=== PATIENT | female | born 2000 | race Caucasian/White ===

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

== ENCOUNTER → 2022-01-28 10:27 | Outpatient (CLI) | payer OTHER, SELFPAY | PROVIDERS: PCP Obstetrics & Gynecology; Visit Provider Obstetrics & Gynecology | DX: Z34.90 Encounter for supervision of normal pregnancy, unspecified, unspecified trimester (principal) ==

== ENCOUNTER → 2022-01-30 07:05 | Outpatient (CLI) | payer OTHER, SELFPAY ==
[2022-01-30 07:30] LABS: Basophils # 0.1 K/mm3 (0-0.2); Basophils % 1.2 % (0.1-2.0); Eosinophils # 0.1 K/mm3 (0.0-0.4); Eosinophils % 0.9 % (0.1-12.0); Hematocrit 40.5 % (37.0-47.0); Hemoglobin 13.1 g/dL (12.2-16.2); Lymphocytes # 1.4 K/mm3 (0.7-4.5); Lymphocytes % 13.3 % (10-50); Mean Corpuscular HGB Conc 32.3 g/dL (31.8-35.4); Mean Corpuscular Hemoglobin 32.1 pg (27.0-31.2); Mean Corpuscular Volume 99.5 fl (81-99); Mean Platelet Volume 8.2 fl (7.4-10.4); Monocytes # 0.5 K/mm3 (0.1-1.0); Monocytes % 4.3 % (1.7-9.3); Neutrophils # 8.4 K/mm3 (1.8-7.8); Neutrophils % 80.2 % (37.0-80.0); Platelet Count 193 K/mm3 (142-424); Red Blood Count 4.07 M/mm3 (4.20-5.40); Red Cell Distribution Width 13.9 % (11.5-17.5); White Blood Count 10.5 K/mm3 (4.5-13.0)
[2022-01-30 07:35] LABS: Glucose,Fasting 87 mg/dl (74-100)
[2022-01-30 09:00] LABS: Glucose 1 Hour 98 mg/dL (74-100)
== END ==
PROVIDERS: PCP Nurse Practitioner Family; Visit Provider Obstetrics & Gynecology
DX: Z34.90 Encounter for supervision of normal pregnancy, unspecified, unspecified trimester (principal)
CPT/HCPCS: 36415; 82951; 85025

== ENCOUNTER 2022-02-04 09:46 | Outpatient (CLI) | payer OTHER, SELFPAY ==
[2022-02-04 09:57] VITALS: BMI 26.1
[2022-02-04 10:14] VITALS: BP 129/71; PULSE 67; RESP 17; TEMP 36.6; O2SAT 98; BMI 26.1
[2022-02-04 10:14] LABS: Microscopic, Urine URINE MICROSCOPIC (MICROSCOPIC)
[2022-02-04 10:16] LABS: Appearance,Urine CLEAR (Clear); Bilirubin,Urine Negative (Negative); Blood, Urine 3+ (Negative); Color,Urine YELLOW (Yellow); Glucose,Urine (UA) Negative (Negative); Ketones,Urine Negative (Negative); Leukocyte Esterase,Urine TRACE (Negative); Nitrate,Urine Negative (Negative); Protein,Urine Negative (Negative); Specific Gravity, Urine 1.015 (1.005-1.030); Urobilinogen,Urine 0.2 EU/dl (0.2)
[2022-02-04 10:29] LABS: Benzodiazepines Screen,Urine Negative ng/ml (<200)
[2022-02-04 10:30] LABS: Amphetamine/Metha Screen,Urine Negative ng/ml (<1000); Barbiturates Screen,Urine Negative ng/ml (<200)
[2022-02-04 10:32] LABS: Cannabinoid Screen,Urine Positive ng/ml (<50)
[2022-02-04 10:33] LABS: Cocaine Screen,Urine Negative ng/ml (<300); Methadone Screen,Urine Negative ng/ml (<300)
[2022-02-04 10:34] LABS: Opiate Screen,Urine Negative ng/ml (<300)
[2022-02-04 10:35] LABS: Bacteria,Urine Trace /lpf; Phencyclidine Screen,Urine Negative ng/ml (<25)
== END 2022-02-04 10:44 | disposition home or self-care (01) ==
LOC: OBOUT 09:49 → OB 09:51
PROVIDERS: Visit Provider Obstetrics & Gynecology
DX: O26.892 Other specified pregnancy related conditions, second trimester (principal); Z3A.26 26 weeks gestation of pregnancy
CPT/HCPCS: 59025; 80305; 81001; G0463

== ENCOUNTER → 2022-02-13 14:54 | Outpatient (CLI) | payer OTHER, SELFPAY ==
--- NOTE | 2022-02-13 14:56 | US_ITS ---
FINAL REPORT CLINICAL HISTORY: SGA FINDINGS: TRANSABDOMINAL ULTRASOUND There is a single live intrauterine gestation. Presentation is cephalic. The cervix is closed and measures 3.5 cm. Placenta is anterior and grade 1. Cardiac activity is confirmed at 152 bpm. Fetus is active. KRISTIN: 12 cm MEASUREMENTS: ULTRASOUND AGE: 28 weeks 4 days. GESTATION AGE: 28 weeks 1 days. ESTIMATED WEIGHT: 1173 g GROWTH PERCENTILE: 35% LMP percentile BPD: 7.4 cm consistent with 29 weeks 6 days. OFD: 9.2 cm consistent with 28 weeks 2 days. HC: 26.3 cm consistent with 28 weeks 5 days. AC: 23.8 cm consistent with 28 weeks 1 days. FL: 5.2 cm consistent with 27 weeks 4 days. HC/AC: 1.10 CI: 81% FL/BPD: 69% FL/AC: 22% BREATHIN/2 MOVEMENT: 2/2 TONE: 2/2 FLUID VOLUME: 2/2 BPP SCORE: 8/8 IMPRESSION: Single living IUP with an ultrasound age of 28 weeks 4 days. BPP SCORE: 8/8 KRISTIN: 12 cm Reviewed, Interpreted and Dictated by Collin Harvey III, MD Transcribed by Henry Sharp Authenticated and [facility]
== END ==
PROVIDERS: PCP Nurse Practitioner Family; Visit Provider Obstetrics & Gynecology
DX: O36.5990 Maternal care for other known or suspected poor fetal growth, unspecified trimester, not applicable or unspecified (principal)
CPT/HCPCS: 76816; 76819; 76820

== ENCOUNTER → 2022-03-30 13:59 | Outpatient (CLI) | payer OTHER, SELFPAY ==
--- NOTE | 2022-03-30 14:02 | US_ITS ---
FINAL REPORT CLINICAL HISTORY: SGA US OB BPP/Growth with SD RATIO FINDINGS: TRANSABDOMINAL ULTRASOUND There is a single live intrauterine gestation. Presentation is cephalic. The cervix is closed and measures 3.7 cm. Placenta is anterior, grade 2. Cardiac activity is confirmed at 135 bpm. Fetus is active and practice breathing is seen. KRISTIN: 14.24 cm MEASUREMENTS: ULTRASOUND AGE: 35 weeks 0 days. GESTATION AGE: 34 weeks 4 days. ESTIMATED WEIGHT: 2532 g GROWTH PERCENTILE: 54% LMP percentile BPD: 8.7 cm corresponding with 35 weeks 1 days. OFD: 11 cm corresponding with 35 weeks 5 days. HC: 31.2 cm corresponding with 35 weeks 0 days. AC: 31.1 cm corresponding with 35 weeks 1 days. FL: 6.7 cm corresponding with 34 weeks 3 days. S/D ratio: 2.40 HC/AC: 1.00 CI: 79% FL/BPD: 77% FL/AC: 22% BREATHIN/2 MOVEMENT: 2/2 TONE: 2/2 FLUID VOLUME: 2/2 BPP SCORE: 8/8 IMPRESSION: Single living IUP with an ultrasound age of 35 weeks 0 days. BPP SCORE: 8/8 KRISTIN: 14.24 cm Reviewed, Interpreted and Dictated by Ever Velasco MD Transcribed by Hortencia Dillon Authenticated and [facility]
== END ==
PROVIDERS: PCP Nurse Practitioner Family; Visit Provider Obstetrics & Gynecology
DX: O36.5990 Maternal care for other known or suspected poor fetal growth, unspecified trimester, not applicable or unspecified (principal)
CPT/HCPCS: 76816; 76819; 76820

== ENCOUNTER → 2022-04-11 19:14 | Outpatient (CLI) | payer OTHER, SELFPAY | PROVIDERS: PCP Obstetrics & Gynecology; Visit Provider Obstetrics & Gynecology | DX: Z34.90 Encounter for supervision of normal pregnancy, unspecified, unspecified trimester (principal) | CPT/HCPCS: 86403 ==

== ENCOUNTER → 2022-04-13 16:29 | Outpatient (CLI) | payer OTHER, SELFPAY ==
[2022-04-13 17:25] LABS: Basophils # 0.1 K/mm3 (0-0.2); Basophils % 0.6 % (0.1-2.0); Eosinophils # 0.1 K/mm3 (0.0-0.4); Eosinophils % 0.6 % (0.1-12.0); Hematocrit 39.3 % (37.0-47.0); Hemoglobin 13.1 g/dL (12.2-16.2); Lymphocytes # 1.2 K/mm3 (0.7-4.5); Lymphocytes % 13.8 % (10-50); Mean Corpuscular HGB Conc 33.2 g/dL (31.8-35.4); Mean Corpuscular Hemoglobin 32.5 pg (27.0-31.2); Mean Corpuscular Volume 97.8 fl (81-99); Mean Platelet Volume 9.8 fl (7.4-10.4); Monocytes # 0.4 K/mm3 (0.1-1.0); Monocytes % 4.9 % (1.7-9.3); Neutrophils # 7.1 K/mm3 (1.8-7.8); Neutrophils % 80.2 % (37.0-80.0); Platelet Count 198 K/mm3 (142-424); Red Blood Count 4.02 M/mm3 (4.20-5.40); Red Cell Distribution Width 13.8 % (11.5-17.5); White Blood Count 8.8 K/mm3 (4.5-13.0)
[2022-04-13 18:17] LABS: Alanine Aminotransferase 13 U/L (12-78); Albumin Level 3.3 g/dl (3.5-5.0); Albumin/Globulin Ratio 1.3 (1.1-1.8); Alkaline Phosphatase 127 U/L (38-126); Anion Gap 9.4 mEq/L (5-15); Aspartate Amino Transferase 24 U/L (14-36); Bilirubin,Total 0.4 mg/dl (0.2-1.3); Blood Urea Nitrogen 8 mg/dl (7-17); Calcium 8.4 mg/dl (8.4-10.2); Carbon Dioxide 26 mmol/L (22.0-30.0); Chloride 106 mmol/L (98-107); Estimated Glomerular Filt Rate 129 ml/min (>60); GFR (African American) 156 ML/MIN (>60); Globulin 2.5 g/dL (1.3-3.2); Glucose 102 mg/dl (74-100); Potassium 4.4 mmoL/L (3.5-5.1); Sodium 137 mmol/L (136-145); Total Protein,Serum 5.8 g/dl (6.3-8.2); Uric Acid 3.3 mg/dl (2.5-6.2)
[2022-04-13 18:27] LABS: Collection Time,Urine 24 hours; Total Volume,Urine 1200 mL (600-1600)
[2022-04-13 18:42] LABS: Patient Height,Urine 68 inches; Patient Weight,Urine 185 lbs
[2022-04-13 18:47] LABS: Thyroid Stimulating Hormone 1.17 uIU/mL (0.465-4.68)
[2022-04-13 21:53] LABS: Creatinine 24 Hour,Urine 912 mg/24hr (630-2500); Total Protein 24 Hour,Urine 168 mg/24 hr (40-90)
[2022-04-14 00:54] LABS: Creatinine,Urine Random 76 mg/dL (Not Estab.)
[2022-04-14 01:15] LABS: Creatinine Clearance Urine 105.6 mL/min (25-115)
== END ==
PROVIDERS: PCP Nurse Practitioner Family; Visit Provider Obstetrics & Gynecology
DX: Z34.90 Encounter for supervision of normal pregnancy, unspecified, unspecified trimester (principal); R09.89 Other specified symptoms and signs involving the circulatory and respiratory systems
CPT/HCPCS: 36415; 80053; 82575; 84144; 84155; 84443; 84550; 85025

== ENCOUNTER → 2022-04-14 17:39 | Outpatient (CLI) | payer OTHER, SELFPAY ==
[2022-04-17 21:11] LABS: Neisseria gonorrhoeae, NAA Negative (Negative)
== END ==
PROVIDERS: PCP Obstetrics & Gynecology; Visit Provider Obstetrics & Gynecology
DX: Z11.3 Encounter for screening for infections with a predominantly sexual mode of transmission (principal)
CPT/HCPCS: 87491; 87591

== ENCOUNTER 2022-04-23 14:49 | Inpatient (IN) | payer OTHER, SELFPAY ==
[2022-04-23 14:54] VITALS: BP 132/84; PULSE 91; RESP 16; TEMP 36.3; O2SAT 97; BMI 29.2
[2022-04-23 15:40] LABS: Coronavirus 19, PCR Not Detected (NotDetected); Influenza A, PCR Not Detected (NotDetected); Influenza B, PCR Not Detected (NotDetected)
[2022-04-23 15:40] LABS: Microscopic, Urine URINE MICROSCOPIC (MICROSCOPIC)
[2022-04-23 15:45] LABS: Appearance,Urine SL CLOUDY (Clear); Bilirubin,Urine Negative (Negative); Blood, Urine Negative (Negative); Color,Urine YELLOW (Yellow); Glucose,Urine (UA) Negative (Negative); Ketones,Urine Negative (Negative); Leukocyte Esterase,Urine 2+ (Negative); Nitrate,Urine Negative (Negative); Protein,Urine 1+ (Negative); Specific Gravity, Urine 1.025 (1.005-1.030); Urobilinogen,Urine 0.2 EU/dl (0.2)
[2022-04-23 15:45] LABS: Basophils # 0.1 K/mm3 (0-0.2); Basophils % 0.8 % (0.1-2.0); Eosinophils # 0.1 K/mm3 (0.0-0.4); Eosinophils % 0.9 % (0.1-12.0); Hematocrit 39.4 % (37.0-47.0); Hemoglobin 13.2 g/dL (12.2-16.2); Lymphocytes # 1.4 K/mm3 (0.7-4.5); Mean Corpuscular HGB Conc 33.5 g/dL (31.8-35.4); Mean Corpuscular Hemoglobin 32.2 pg (27.0-31.2); Mean Corpuscular Volume 96.1 fl (81-99); Mean Platelet Volume 9.6 fl (7.4-10.4); Monocytes # 0.5 K/mm3 (0.1-1.0); Monocytes % 4.8 % (1.7-9.3); Neutrophils # 7.4 K/mm3 (1.8-7.8); Neutrophils % 78.5 % (37.0-80.0); Platelet Count 224 K/mm3 (142-424); Red Cell Distribution Width 13.7 % (11.5-17.5); White Blood Count 9.4 K/mm3 (4.5-13.0)
[2022-04-23 15:57] LABS: Barbiturates Screen,Urine Negative ng/ml (<200)
[2022-04-23 15:58] LABS: Amphetamine/Metha Screen,Urine Negative ng/ml (<1000); Benzodiazepines Screen,Urine Negative ng/ml (<200)
[2022-04-23 15:59] LABS: Bacteria,Urine Trace /lpf; Cannabinoid Screen,Urine Negative ng/ml (<50); RBC,Urine Occasional #/hpf (0-3); Squamous Epithelial Cell,Urine 20-50 #/hpf (0-5); WBC,Urine 20-50 #/hpf (0-3)
[2022-04-23 16:00] LABS: Cocaine Screen,Urine Negative ng/ml (<300); Methadone Screen,Urine Negative ng/ml (<300)
[2022-04-23 16:01] LABS: Opiate Screen,Urine Negative ng/ml (<300)
[2022-04-23 16:02] LABS: Phencyclidine Screen,Urine Negative ng/ml (<25)
[2022-04-23 21:15] VITALS: BP 140/66; PULSE 84; RESP 18; TEMP 36.4; O2SAT 98
[2022-04-24] VITALS (10 sets, daily range): BP systolic 111–139; BP diastolic 75–85; PULSE 76–98; RESP 12–18; TEMP 36.4–36.7; O2SAT 98–100
--- NOTE | 2022-04-24 06:45 | HMH.PHAINT1 ---
Pharmacy Intervention Comments: MEDICATION RECONCILIATION COMPLETED ON PATIENT USING EXTERNAL FILL HISTORY FROM PHARMACY. -JUAN SMITH, MEMED
--- NOTE | 2022-04-24 07:56 | EXP.HP ---
History of Present Illness *Admission Date: 04/23/22 *Reason for visit:: Induction of labor-- Gestational Hypertension *History of present illness: 21 yo G1 @ 38 04/01 admitted for induction of labor secondary to gestational hypertension DHIRAJ 05/07/22; dating by 6 3 ultrasound care at [facility]-- Dr. Watkins +THC on UDS, Rubella non-immune, GBS positive labs otherwise normal/negative FOB +sickle cell trait; aneuploidy screen negative Increasing blood pressure during office visits over the past 2 weeks: 140-160/90-100 @4 hour urine protein 169 Anetnatal testing reassuring Unfavorable cervix at time of induction cervical balloon catheter placed, along with cervidil, for ripening unfortunately, she had a bowel movement 2 hours after catheter placement and this was expelled with valsalva [facility] Disclaimer: The information contained in this section may have been updated after the patient was seen, as this information can be updated by other users. Medical History (Updated 04/24/22 @ 17:22 by Faith Watkins MD) Cjjo-Rozp-Aefmfu syndrome Pelvic inflammatory disease Sinusitis Family History Other Cancer Diabetes Hypertension Social History (Updated 04/23/22 @ 15:56 by Lorna Jordan RN) Smoking Status: Never smoker alcohol intake: never substance use type: denies use current occupational status: employed Travel in the last 8 weeks: None household members: significant other housing: apartment caffeine: No Review of Systems Constitutional Constitutional: Reports system reviewed and no additional complaints, except as documented and Denies headache(s) ENT Ears, Nose, Mouth, and Throat: Denies headache(s) *Genitourinary Genitourinary: Denies abnormal vaginal bleeding *Neurologic Neurologic: Denies headache(s) and Denies other visual disturbances Meds Home Medications and Allergies Home Medications Medication Instructions Recorded Confirmed Type vits no.126-ferrous fum 1 tab PO DAILY Supplement 07/05/21 04/23/22 History 28 mg iron-folic acid 800 mcg tablet (Classic ) ondansetron 4 mg disintegrating 4 mg PO Q6HP PRN nausea and 04/24/22 04/24/22 History tablet vomiting New Prescriptions to Start Prescriptions: Allergies Allergy/AdvReac Type Severity Reaction Status Date / Time No Known Allergies Allergy Verified 04/20/22 14:18 Exam Data for Last 24 hours Vital signs and Labs for Last 24 Hours: Temp Pulse Resp BP Pulse Ox 97.5 F L 82 16 139/80 99 04/24/22 13:16 04/24/22 13:50 04/24/22 13:50 04/24/22 13:50 04/24/22 13:50 Laboratory Results - last 24 hr 04/23/22 15:05: Urine RBC Occasional, Urine WBC 20-50, Ur Squamous Epith Cells 20-50, Urine Bacteria Trace 04/23/22 15:05: Urine Opiates Screen Negative, Urine Methadone Screen Negative, Ur Barbituates Screen Negative, Ur Phencyclidine Scrn Negative, Ur Amphetamines Screen Negative, U Benzodiazepines Scrn Negative, Urine Cocaine Screen Negative, U Marijuana (THC) Screen Negative 04/23/22 15:27: Blood Type A Positive, Antibody Screen Negative, Crossmatch (AHG) See Detail 04/23/22 15:30: SARS-CoV-2 (PCR) Not detected, Influenza A Untype (PCR) Not detected, Influenza Type B (PCR) Not detected 04/24/22 12:19: Cord ABG pH 7.19 L* I & O for Last 24 hours: Intake & Output 04/22/22 04/23/22 04/24/22 04/25/22 11:59 11:59 11:59 11:59 Intake Total 1000 / 1000 Balance 1000 / 1000 Weight 187 lb Microbiology Reports for the Last 24 Hours: Microbiology 04/23/22 15:05 Urine,Clean Catch Urine Culture - Preliminary NO GROWTH AFTER 24 HOURS Constitutional Constitutional: no acute distress *Routine HEENT Exam Head: Present normocephalic Eye: Absent conjunctival icterus or scleral injection ENT: Present mucous membranes moist *Routine Neck Exam Neck: Present supp
--- NOTE | 2022-04-24 10:17 | EXP.ANES.CKL ---
[facility] Disclaimer: The information contained in this section may have been updated after the patient was seen, as this information can be updated by other users. Medical History Jvnj-Vjoc-Yqzpdh syndrome Pelvic inflammatory disease Sinusitis Family History Other Cancer Diabetes Hypertension Social History (Updated 04/23/22 @ 15:56 by Lorna Jordan RN) Smoking Status: Never smoker alcohol intake: never substance use type: denies use current occupational status: employed Travel in the last 8 weeks: None household members: significant other housing: apartment caffeine: No [facility] Anesthesia Checklist Patient Identification Patient Identification: Verbal (Name & ) Structural Data Admitted From: Inpatient Planned Operative Procedure/s: labor epidural Consent for Planned Operative Procedure(s) Verified: Yes Airway Assessment C-Spine Mobility Assessed: Yes TMJ Mobility Assessed: Yes Dentition: Good Dentition Neurological Assessment Level of Consciousness: Awake, Alert and Appropriate Anesthesia Plan Anesthesia Risk discussed: Yes Anesthesia Plan: Verified ASA Class: II Anesthesia Type: Epidural
--- NOTE | 2022-04-24 11:54 | EXP.LABOR.NO ---
Labor Note Subjective: Date: 04/24/22 Time: 11:54 Comment:: contraction pattern regular having reccurrent late decelerations in heart rate cervix unchanged-- 4cm heart rate not responding to changes in maternal position, supplemental oxygen and discontinuation of oxytocin prolonged deceleration/ bradycardia at 80-90 patient advised of need for immediate/emergent delivery and consent forms were signed for c section Assessment: All Active Problems (Updated 04/24/22 @ 17:22 by Faith Watkins MD) 38 weeks gestation of (Acute) Group B Streptococcus carrier, +RV culture, currently (Acute) Gestational hypertension without significant proteinuria during in third trimester, antepartum (Acute) High risk teen (Acute) Screening for genetic disease carrier status (Acute) Rubella non-immune status, antepartum (Acute) (Acute)
--- NOTE | 2022-04-24 12:14 | SUR.OPER ---
1214- viable infant male born at this time 1224- pH of 7.18 given to ASUNCION Castanon and was reported to MD Watkins
[2022-04-24 12:24] LABS: Cord Blood PH 7.19 (7.35-7.45)
--- NOTE | 2022-04-24 13:15 | EXP.ANES.I ---
[facility] Anesthesia Record Part I Anesthesia Record I Intake, IV Amount: 1,000 Estimated blood loss (mL): 600 Urine output (mL): 250 Blood Pressure: 128/75 SaO2: 100 Pulse Rate: 93 Respiratory Rate: 12 Temperature: 97.5 F Patient is:: Awake and Stable Stable to PACU at:: 13:10
--- NOTE | 2022-04-24 13:39 | EXP.OP.NOTE ---
Date of procedure: 04/24/22 Pre-op Diagnosis:: 1. 38 04/01 2. Gestational Hypertension 3. bradycardia Post-op Diagnosis:: Same Procedure performed:: Low Transverse C Section Surgeon:: Faith Watkins MD MARKETING AUTOMATION ANALYST:: Roge Fisher Anesthesia: epidural Estimated blood loss (mL): 600 Operative findings:: Male infant in vertex presentation: apgars 5 (1 min), 7 (5 min) and 9 (10 min) Grossly normal uterus, fallopian tubes and ovaries Operative note:: The patient was taken to the OR and adequate anesthesia level was confirmed. She was prepped and draped in normal sterile fashion. A pfannenstiel skin incision was made with the scalpel and carried down to the fascia. The fascia was incised in the midline and sharply dissected off the rectus muscles. The muscles were in the midline and the peritoneum was entered sharply and extended bluntly. The Randall-O self retaining retractor was placed in the abdomen. The uterus was incised in the lower uterine segment in a transverse fashion and extended bluntly. The infant's had was wedged in the pelvis and there was some difficulty bringing the vertex to the level of the incision. The showed poor tone at time of delivery and cord was clamped/cut immediately in order to provide immediate assessment by psychometrician and nursing staff. Cord blood was collected for pH and a cord segment was preserved. The placenta was manually extracted and noted to be intact. The uterus was repaired with 0-vicryl in a running/locked fashion. The peritoneum was closed with 2-0 vicryl in a running fashion. The fascia was closed with #1 vicryl in a running fashion. The subcutaneous fat was closed with 2-0 vicryl in an interrupted fashion. The skin was closed with 2-0 stratafix in a subcuticular fashion. The patient tolerated the procedure well. Sponge, lap, needle and instrument counts were correct x 2. EBL: 600cc. She was taken to PACU awake and in stable condition. Condition: stable Disposition: PACU Complications:: None
--- NOTE | 2022-04-24 14:06 | PC.NURSE ---
Fundus massaged, a large clot was expelled and bleeding subsided. Pt tolerated well.
[2022-04-24 18:08] LABS: MANUAL DIFFERENTIAL MANUAL DIFFERENTIAL (MANUAL DIFF)
[2022-04-24 18:24] LABS: Alanine Aminotransferase 15 U/L (12-78); Albumin Level 2.9 g/dl (3.5-5.0); Albumin/Globulin Ratio 1.2 (1.1-1.8); Alkaline Phosphatase 135 U/L (38-126); Aspartate Amino Transferase 29 U/L (14-36); Bilirubin,Total 0.5 mg/dl (0.2-1.3); Blood Urea Nitrogen 11 mg/dl (7-17); Calcium 7.8 mg/dl (8.4-10.2); Carbon Dioxide 23 mmol/L (22.0-30.0); Chloride 109 mmol/L (98-107); Creatinine Clearance Estimated 202 mL/min (50-200); Estimated Glomerular Filt Rate 129 ml/min (>60); GFR (African American) 156 ML/MIN (>60); Globulin 2.5 g/dL (1.3-3.2); Glucose 93 mg/dl (74-100); Sodium 135 mmol/L (136-145); Total Protein,Serum 5.4 g/dl (6.3-8.2); Uric Acid 4.1 mg/dl (2.5-6.2)
[2022-04-24 18:40] LABS: Basophils % 0.2 % (0.1-2.0); Eosinophils % 0.1 % (0.1-12.0); Hematocrit 35.9 % (37.0-47.0); Lymphocytes % 5.6 % (10-50); Mean Corpuscular HGB Conc 33.4 g/dL (31.8-35.4); Mean Corpuscular Hemoglobin 32.7 pg (27.0-31.2); Mean Corpuscular Volume 97.7 fl (81-99); Mean Platelet Volume 9.4 fl (7.4-10.4); Monocytes # 0.6 K/mm3 (0.1-1.0); Monocytes % 3.4 % (1.7-9.3); Neutrophils # 15.4 K/mm3 (1.8-7.8); Neutrophils % 90.7 % (37.0-80.0); Platelet Count 213 K/mm3 (142-424); Red Blood Count 3.67 M/mm3 (4.20-5.40); Red Cell Distribution Width 13.6 % (11.5-17.5)
[2022-04-24 18:44] LABS: White Blood Count 16.4 K/mm3 (4.5-13.0)
[2022-04-24 18:49] LABS: Lymphocytes % 4 % (10-50); Monocytes % 4 % (2-9); Neutrophils % 92 % (42-76); Platelet Estimate Normal; RBC Morphology Normal; Total Cells Counted 100
[2022-04-25 03:39] VITALS: BP 120/76; PULSE 81; RESP 18; TEMP 36.5; O2SAT 99
[2022-04-25 06:57] LABS: Hematocrit 31.8 % (37.0-47.0); Hemoglobin 10.5 g/dL (12.2-16.2)
[2022-04-25 08:10] VITALS: BP 125/63; PULSE 77; RESP 16; TEMP 36.5; O2SAT 99
--- NOTE | 2022-04-25 08:23 | EXP.ANES.CKL ---
[facility] Disclaimer: The information contained in this section may have been updated after the patient was seen, as this information can be updated by other users. Medical History (Updated 04/24/22 @ 17:22 by Faith Watkins MD) Skdq-Lsav-Eoswba syndrome Pelvic inflammatory disease Sinusitis Family History Other Cancer Diabetes Hypertension Social History (Updated 04/23/22 @ 15:56 by Lorna Jordan RN) Smoking Status: Never smoker alcohol intake: never substance use type: denies use current occupational status: employed Travel in the last 8 weeks: None household members: significant other housing: apartment caffeine: No [facility] Anesthesia Checklist Patient Identification Patient Identification: Verbal (Name & ) Structural Data Admitted From: Home Planned Operative Procedure/s: d/c,hyst,novasure Consent for Planned Operative Procedure(s) Verified: Yes Additional verifications Fingerstick Blood Glucose: 0 Airway Assessment C-Spine Mobility Assessed: Yes TMJ Mobility Assessed: Yes Dentition: Good Dentition Neurological Assessment Level of Consciousness: Awake, Alert and Appropriate Anesthesia Plan Anesthesia Risk discussed: Yes Anesthesia Plan: Verified ASA Class: II Anesthesia Type: General
--- NOTE | 2022-04-25 09:07 | SW/DCPLANNER ---
Addendum entered by Merlyn Ding 05/01/22 09:09: Infant cord screen is NEGATIVE. Original Note: I received a referral on this patient regarding: teen and marijuana use during . Patient was positive for THC on 02/04/22 and admits to using THC. Patient and infant were negative at admission. male (Santana Boles) was born on 04/24/22. Infant's father (Lamont Boles 03/28/96) was present during my visit. Lamont stated that she does have one other child that he is involved with at this time. Patient, Lamont and infant will reside at [address] in [place] [address]. Patient's contact number is [phone]. Patient is currently established with [facility] and is interested in HANDS. I will reach out to the HANDS program today regarding delivery. Patient stated that she does have the following items: crib, carseat, clothing, diapers and will be bottle feeding. OB nursing staff (Lorna) stated that patient/father are appropriate with . Patient is expected to discharge on 04/26/22 or 04/27/22. Patient has no further needs at this time.
[2022-04-25 16:30] VITALS: BP 117/55; PULSE 70; RESP 16; TEMP 36.8; O2SAT 98
--- NOTE | 2022-04-25 17:15 | EXP.ACUTE.PN ---
Subjective *Date: 04/25/22 *Time: 12:15 Interval history: POD #1 primary LTCS for bradycardia No unusual complaints She is tolerating a regular diet, ambulating and voiding without difficulty Pain control has been sufficient Lochia is appropriate She is asymptomatic with acute blood loss anemia Hgb 10.5 on POD 1 (Hgb 12.0 at admission) Her infant is doing well Medical Exam Vital signs and Labs for Last 24 Hours: Vital Signs Temp Pulse Resp BP Pulse Ox 04/25/22 08:10 97.7 F 77 16 125/63 99 04/25/22 03:39 97.7 F 81 18 120/76 99 04/24/22 20:09 97.6 F 81 18 128/77 99 Laboratory Results - last 24 hr 04/24/22 17:56: WBC 16.4 H D, RBC 3.67 L, Hgb 12.0 L, Hct 35.9 L, MCV 97.7, MCH 32.7 H, MCHC 33.4, RDW 13.6, Plt Count 213, MPV 9.4, Neut % (Auto) 90.7 H, Lymph % (Auto) 5.6 L, [place] % (Auto) 3.4, Eos % (Auto) 0.1, Baso % (Auto) 0.2, Neut # (Auto) 15.4 H, Lymph # (Auto) 1.0, [place] # (Auto) 0.6, Eos # (Auto) 0.0, Baso # (Auto) 0.0, Total Counted 100, Neutrophils % (Manual) 92 H, Lymphocytes % (Manual) 4 L, Monocytes % (Manual) 4, Platelet Estimate Normal, RBC Morphology Normal 04/24/22 17:56: Sodium 135 L, Potassium 4.0, Chloride 109 H, Carbon Dioxide 23, Anion Gap 7.0, BUN 11, Creatinine 0.60, Estimated Creat Clear 202, Estimated GFR 129, Est GFR ( Amer) 156, Glucose 93, Uric Acid 4.1, Calcium 7.8 L, Total Bilirubin 0.5, AST 29, ALT 15, Alkaline Phosphatase 135 H, Total Protein 5.4 L, Albumin 2.9 L, Globulin 2.5, Albumin/Globulin Ratio 1.2 04/25/22 06:34: Hgb 10.5 L D, Hct 31.8 L I & O for Labs for Last 24 Hours: Intake & Output 04/23/22 04/24/22 04/25/22 04/26/22 11:59 11:59 11:59 11:59 Intake Total 1000 / 1000 Output Total 350 / 350 Balance 650 / 650 Weight 187 lb Microbiology Reports for the Last 24 Hours: Microbiology 04/23/22 15:05 Urine,Clean Catch Urine Culture - Preliminary Comment:: No acute distress Comment:: breathing unlabored Comment:: Regular rate, normal peripheral pulses Comments:: abdomen soft, non-distended Mild tenderness Comment:: uterine fundus firm below umbilicus Comment:: 1+ edema bilateral lower extremities Comment:: Incision dry/intact Assessment and Plan *Assessment and plan (1) 38 weeks gestation of : Status: Acute Category: Medical Code(s): Z3A.38 - 38 weeks gestation of (2) Group B Streptococcus carrier, +RV culture, currently : Status: Acute Category: Medical Code(s): O99.820 - Streptococcus B carrier state complicating (3) Gestational hypertension without significant proteinuria during in third trimester, antepartum: Status: Acute Category: Medical Code(s): O13.3 - Gestational [-induced] hypertension without significant proteinuria, third trimester (4) Rubella non-immune status, antepartum: Status: Acute Category: Medical Code(s): O09.899 - Supervision of other high risk pregnancies, unspecified trimester; Z28.39 - Other underimmunization status (5) Delivered by section: Status: Acute Category: Medical Code(s): Z38.01 - Single liveborn , delivered by Plan Routine postop/ care Advance care as tolerated PO FeSO4 for anemia Anticipate discharge home on POD #2 or #3
[2022-04-25 20:00] VITALS: BP 135/68; PULSE 82; RESP 18; TEMP 36.9; O2SAT 99
[2022-04-26 04:42] VITALS: BP 128/63; PULSE 82; RESP 18; TEMP 36.7; O2SAT 99
[2022-04-26 08:42] VITALS: BP 139/65; PULSE 83; RESP 17; TEMP 36.8; O2SAT 99
--- NOTE | 2022-04-26 08:46 | EXP.DC.SUM ---
General Admission date:: 04/23/22 Discharge date: 04/26/22 HPI HPI HPI: POD # 2 s/p PLTCS Doing well. Pain controlled with medication. Light lochia. She is bottle/formula feeding. Voiding without difficulty and passing flatus. Denies fever/chills, chest pain and shortness of breath. No headaches, vision changes. Admits to mild lower extremity swelling. Hospital Course Hospital Course Hospital Course: Ms Sussy Scott is a 21 yo at 38 1/7 admitted to [facility] for induction of labor secondary to gestational hypertension. She had increasing blood pressure during office visits over the past 2 weeks: 140-160/90-100. 24 hour urine protein was 169. Her cervix was unfavorable at time of induction, . She had cervical balloon catheter placed, along with cervidil, for ripening. Unfortunately, she had a bowel movement 2 hours after catheter placement and this was expelled with valsalva. GBS positive. She progressed to 4cm dilated. She began having recurrent late decelerations unresponsive to intrauterine resuscitation. Following interventions bradycaria 80-90's/ prolonged deceleration was noted and decision was made to proceed with emergent . She underwent primary on 04/24/22. She delivered a live male baby, Santana, weighing 7 lb 0 oz. APGARs 7, 9. EBL 600 mL. She is doing well postoperatively. She is bottle feeding. Pain controlled. Light lochia. Vital signs stable, afebrile. Voiding without difficulty and passing flatus. She had a BM. Heart regular rate and rhythm. Lungs clear to auscultation. Abdomen soft, appropriate tenderness to palpation. Trace lower extremity edema. No calf tenderness to palpation. Discharged to home POD # 2. Discussed discharge instructions. Follow-up in 2 weeks. 04/24/22: Hgb 12.0, Hct 35.9 04/25/22: Hgb 10.5, Hct 31.8 Exam Data for Last 24 hours Vital signs and Labs for Last 24 Hours: Temp Pulse Resp BP Pulse Ox 98.0 F 82 18 128/63 99 04/26/22 04:42 04/26/22 04:42 04/26/22 04:42 04/26/22 04:42 04/26/22 04:42 I & O for Last 24 hours: Intake & Output 04/23/22 04/24/22 04/25/22 04/26/22 23:59 23:59 23:59 23:59 Intake Total 1000 / 1000 Output Total 350 / 350 Balance 650 / 650 Weight 187 lb Microbiology Reports for the Last 24 Hours: Microbiology 04/23/22 15:05 Urine,Clean Catch Urine Culture - Preliminary Constitutional Constitutional: no acute distress and cooperative *Routine HEENT Exam Head: Present normocephalic and atraumatic Eye: Absent conjunctivae pink ENT: Present mucous membranes moist *Routine Neck Exam Neck: Present full ROM *Routine Respiratory Exam Respiratory: Present CTA bilaterally and normal respiratory effort *Routine Cardiovascular Exam Cardiovascular: Present RRR *Routine Abdominal Exam Abdominal: Present soft and normoactive bowel sounds; Absent tenderness or distended Comments: Uterine fundus firm and below umbilicus. Incision clean/dry/intact with steri strips in place *Routine Rectal Exam Patient deferred: visual exam *Routine Exam Patient deferred: external exam *Routine Extremities Exam Extremities: Present edema (trace bilateral pedal edmea) and full ROM; Absent calf tenderness *Routine Neurological Exam Neurological: Present alert, oriented X3 and moving all extremities Results Data Completed and Pending Labs on day of discharge: Preliminary micro results at discharge 04/23/22 15:05 Urine Culture - Preliminary Urine,Clean Catch DS: Diagnosis Discharge Diagnosis (1) 38 weeks gestation of : Status: Acute (2) Gestational hypertension without significant proteinuria during in third trimester, antepartum: Status: Acute (3) Group B Streptococcus carrier, +RV culture, currently : Status: Acute (4) Rubella non-immune status, antepartum: Status: Acute (5) Delivered by section: Status: Acute
== END 2022-04-26 11:45 | disposition home or self-care (01) | DRG 788 ==
PROVIDERS: Admitting Provider Obstetrics & Gynecology; PCP Nurse Practitioner Family; Visit Provider Obstetrics & Gynecology
PROC: (CPT 59514; principal; 2022-04-24 12:00)
DX: O13.4 Gestational [pregnancy-induced] hypertension without significant proteinuria, complicating childbirth (principal); Z3A.38 38 weeks gestation of pregnancy; Z37.0 Single live birth; O99.824 Streptococcus B carrier state complicating childbirth; O76 Abnormality in fetal heart rate and rhythm complicating labor and delivery; O99.324 Drug use complicating childbirth; F12.90 Cannabis use, unspecified, uncomplicated; Z23 Encounter for immunization
CPT/HCPCS: 59514; 36415; 59025; 80053; 80305; 81001; 82800; 84550; 85007; 85014; 85018; 85025; 85048; 85049; 86850; 87086; 94761; C1758; C9803; G0283; J0290; J0595; J2405; U0003; U0005

== ENCOUNTER 2022-10-20 15:10 | Emergency (ER) | payer BC, OTHER, SELFPAY ==
[2022-10-20 15:11] VITALS: BP 140/71; PULSE 78; RESP 16; TEMP 36.7; O2SAT 100; BMI 24.3
--- NOTE | 2022-10-20 15:15 | EXP.UTC ---
Discharge Plan Disposition Patient Disposition: Home, Self-Care Condition: Good Prescriptions Prescriptions: New amoxicillin-pot clavulanate 875-125 mg Tablet 1 tab PO Q12H Qty: 20 0RF No Action norethindrone-e.estradiol-iron [04/14 ()] 1 mg-20 mcg (21)/75 mg (7) tablet 1 tab PO DAILY Qty: 84 3RF Rx Instructions: Take 1 tablet by mouth, at the same time every day. labetalol 100 mg Tablet 100 mg PO BID Qty: 60 0RF Referrals Follow up/Referrals: Del Knox MD [Primary Care Provider] - See instructions Activity Restrictions/Add. Instructions Additional Instructions/Restrictions: Take all antibiotics as prescribed until gone Replace toothbrush Clinical Impressions Clinical Impression: Acute tonsillitis Instructions Patient Instructions: DI for Strep Throat Discharge ED Provider[place] Anastasiya Merida [facility] [place] General Stated complaint: knot on throat, painful swallowing Time Seen by Provider: 10/20/22 15:27 History of Present Illness Provider Complaint: Sore throat, white patches on tonsils, swollen glands. Started yesterday. No fever. Onset (ago): day(s) (1) Relieving factors: none Exacerbating factors: none Associated symptoms: denies other symptoms Treatments prior to arrival: none Related Data Previous Rx's Medication Instructions Recorded labetalol 100 mg tablet 100 mg PO BID #60 tabs 04/26/22 norethindrone 1 mg-ethinyl 1 tab PO DAILY #84 tabs 06/05/22 estradiol 20 mcg (21)-iron 75 mg (7) tablet (04/14 ()) amoxicillin 875 mg-potassium 1 tab PO Q12H #20 tabs 10/20/22 clavulanate 125 mg tablet Allergies Allergy/AdvReac Type Severity Reaction Status Date / Time No Known Allergies Allergy Verified 06/05/22 15:32 [facility] Disclaimer: The information contained in this section may have been updated after the patient was seen, as this information can be updated by other users. Medical History (Updated 10/20/22 @ 15:38 by MEKHI Gale) Acute blood loss anemia Delivered by section Gizp-Ymay-Vpjzgh syndrome Pelvic inflammatory disease Sinusitis Surgical History (Updated 06/05/22 @ 15:33 by SONIA Carlos) Status post section Family History Other Cancer Diabetes Hypertension Social History Smoking Status: Never smoker alcohol intake: never substance use type: denies use current occupational status: employed Travel in the last 8 weeks: None household members: significant other housing: apartment caffeine: No ROS Obtained: Yes All systems reviewed & no additional complaints except as documented ENT Ears, Nose, Mouth, and Throat: Reports odynophagia and Reports sore throat Gastrointestinal Gastrointestingal: Reports odynophagia Physical Exam General General appearance: alert and in no apparent distress Head Head exam: atraumatic, normocephalic and normal inspection Eye Eye exam: Present normal appearance, PERRL and EOMI ENT ENT exam: Present normal exam, mucous membranes moist, TM's normal bilaterally and normal external ear exam Expanded ENT Exam Throat exam: Present tonsillar erythema, tonsillomegaly and tonsillar exudate Neck Neck exam: Present normal inspection, full ROM and trachea midline; Absent meningismus or lymphadenopathy Chest Chest inspection: Present normal inspection and symmetric chest wall rise; Absent tenderness Respiratory Respiratory exam: Present normal lung sounds bilaterally; Absent respiratory distress Cardiovascular Cardiovascular exam: Present regular rate and normal rhythm; Absent JVD Abdominal Exam Abdominal exam: Present soft and normal bowel sounds; Absent distention, tenderness or guarding Extremities Exam Extremities exam: Present normal inspection, full ROM and normal capillary refill; Absent calf tenderness Back Exam Back
[2022-10-20 15:34] LABS: UTC Strep Screen (Rapid) Negative (Negative)
[2022-10-20 15:44] VITALS: BP 140/71; PULSE 78; RESP 16; TEMP 36.7; O2SAT 100
== END 2022-10-20 15:45 | disposition home or self-care (01) ==
PROVIDERS: Emergency Provider Physician Assistant; PCP Emergency Medicine
DX: J03.90 Acute tonsillitis, unspecified (principal)
CPT/HCPCS: 87880; 99204; 99212; G0463

== ENCOUNTER 2023-04-05 07:08 | Emergency (ER) | payer BC, OTHER, SELFPAY ==
[2023-04-05 07:09] VITALS: BP 144/81; PULSE 137; RESP 18; TEMP 37.4; O2SAT 99; BMI 21.1
--- NOTE | 2023-04-05 07:47 | ED_ITS ---
Discharge Plan Disposition Patient Disposition: Home, Self-Care Prescriptions Prescriptions: No Action norethindrone-e.estradiol-iron [04/14 ()] 1 mg-20 mcg (21)/75 mg (7) tablet 1 tab PO DAILY Qty: 84 3RF Rx Instructions: Take 1 tablet by mouth, at the same time every day. labetalol 100 mg Tablet 100 mg PO BID Qty: 60 0RF amoxicillin-pot clavulanate 875-125 mg Tablet 1 tab PO Q12H Qty: 20 0RF Referrals Follow up/Referrals: Ольга Herrera APRN [Primary Care Provider] - See instructions Activity Restrictions/Add. Instructions Additional Instructions/Restrictions: Please take Tylenol and ibuprofen as needed for your symptoms at home this should be self-limiting. You may call back for results of your swab. Clinical Impressions Clinical Impression: URI (upper respiratory infection), Tachycardia, Acute dehydration Stand Alone Forms Stand Alone Forms: Work/School Release Discharge ED Provider: Carline Watkins General Adult HPI General Chief complaint: Upper Respiratory Infection Stated complaint: CONGESTION Time Seen by Provider: 04/05/23 07:30 Mode of Arrival: Ambulatory Source of Information: Patient Limitations: No Limitations Description of Symptoms (Recalled from ER Triage Doc. by RN): Patient reports she has been congested for 2 days and has had pain in left ear feels like it is swollen. Patient states fever has been 99.8. Denies nausea, vomiting, and diarrhea. History of Present Illness HPI narrative: Patient is a 22-year-old female no significant past medical history who comes emergency department also accompanied by her son who has similar symptoms. She states that she has been congested for a few days and feels like the left side of her face at the angle of her mandible is a little bit swollen denies any in trinsic ear pain tooth pain throat pain cough nausea vomiting urinary symptoms but states she feels poorly at the moment. Denies any significant past medical history. Related Data Previous Rx's Medication Instructions Recorded labetalol 100 mg tablet 100 mg PO BID #60 tabs 04/26/22 norethindrone 1 mg-ethinyl 1 tab PO DAILY #84 tabs 06/05/22 estradiol 20 mcg (21)-iron 75 mg (7) tablet (04/14 (28)) amoxicillin 875 mg-potassium 1 tab PO Q12H #20 tabs 10/20/22 clavulanate 125 mg tablet Allergies Allergy/AdvReac Type Severity Reaction Status Date / Time No Known Allergies Allergy Verified 06/05/22 15:32 [facility] Disclaimer: The information contained in this section may have been updated after the patient was seen, as this information can be updated by other users. Medical History (Updated 04/05/23 @ 08:45 by Carline Watkins MD) Acute blood loss anemia Delivered by section Sfkf-Gzfw-Vpzllr syndrome Pelvic inflammatory disease Sinusitis Surgical History (Updated 06/05/22 @ 15:33 by SONIA Carlos) Status post section Family History Other Cancer Diabetes Hypertension Social History Smoking Status: Never smoker alcohol intake: never substance use type: denies use current occupational status: employed Travel in the last 8 weeks: None household members: significant other housing: apartment caffeine: No ROS Obtained: Yes All systems reviewed & no additional complaints except as documented Physical Exam General General appearance: alert ENT ENT exam: Present normal exam, normal oropharynx and TM's normal bilaterally Chest Chest inspection: Present normal inspection and symmetric chest wall rise Respiratory Respiratory exam: Present normal lung sounds bilaterally; Absent respiratory distress Cardiovascular Cardiovascular exam: Present tachycardia (Heart rate 130) Neurological Exam Neurological exam: Present alert and oriented X3 Medical Decision Making Damien Inquiry Pt receiving controlled substance: No Vital Signs: 04/05/23 07:09 04/05/23 08:25 04/05/23 08:37 Temperature 99.4 F Temperature Source Oral Pulse Rate 88 72 Pulse Rate [Right] 137 H Respiratory Rate 18 16 Blood Pressure 134/81 Blood Pressure [Right Arm] 144/81 H Blood Pressure Mean [Right Arm] 102 Blood Pressure Source Automatic Cuff Blood Pressure Source [Right Arm] Automatic Cuff 02 Sat by Pulse Oximetry 99 98 99 Oxygen Delivery Method Room Air Room Air Room Air Lab Data Lab results reviewed: Yes I reviewed the patient's lab results. Lab Results 04/05/23 08:00: WBC 9.9, RBC 5.14, Hgb 16.5 H, Hct 49.7 H, MCV 96.8, MCH 32.1 H, MCHC 33.2, RDW 13.8, Plt Count 221, MPV 8.1, Neut % (Auto) 82.9 H, Lymph % (Auto) 11.7, [place] % (Auto) 3.8, Eos % (Auto) 1.1, Baso % (Auto) 0.6, Neut # (Auto) 8.2 H, Lymph # (Auto) 1.2, [place] # (Auto) 0.4, Eos # (Auto) 0.1, Baso # (Auto) 0.1, Sodium 140, Potassium 4.1, Chloride 108 H, Carbon Dioxide 25, Anion Gap 11.1, BUN 10, Creatinine 0.80, Estimated Creat Clear 112, Estimated GFR 91, Est GFR ( Amer) 111, Glucose 108 H, Calcium 8.8, Total Bilirubin 0.9, AST 30, ALT 24, Alkaline Phosphatase 71, Total Protein 7.7 D, Albumin 4.5, Globulin 3.2, Albumin/Globulin Ratio 1.4 04/05/23 08:00 04/05/23 08:00 Orders (Tests/Meds): ED MEDICATIONS Generic Name Dose Route Start Last Admin Trade Name Freq PRN Reason Stop Dose Admin Lactated Ringer's 1,000 mls @ 999 mls/hr 04/05/23 07:45 04/05/23 07:54 Lactated Ringer's 1000 Ml Bag IV 04/05/23 08:45 999 mls/hr .Q1H1M ALICJA Administration Sodium Chloride 10 ml 04/05/23 08:04 Sodium Chloride 0.9% 10ml Flush Syringe IV 05/05/23 08:03 NEEDED PRN Maintain IV Site Discontinued Medications Generic Name Dose Route Start Last Admin Trade Name Freq PRN Reason Stop Dose Admin Acetaminophen 1,000 mg 04/05/23 07:39 04/05/23 07:54 Acetaminophen 500mg Tab PO 04/05/23 07:40 1,000 mg ONCE ONE Administration Ibuprofen 600 mg 04/05/23 07:39 04/05/23 07:54 Ibuprofen 600 Mg Tablet PO 04/05/23 07:40 600 mg ONCE ONE Administration ORDERS Category Date Time Status CBC w/Auto Diff [Complete Blood Count Auto Diff] Stat Lab 04/05/23 08:00 Completed CMP [Comprehensive Metabolic Panel] Stat Lab 04/05/23 08:00 Completed Rapid PCR Covid and Flu A/B Stat Lab 04/05/23 07:19 Received Medical Decision Narrative: Patient is well-appearing but significantly tachycardic with symptoms consistent with an upper respiratory infection. No definitive evidence of a bacterial infection in her oropharynx and dental exam is normal no evidence of an obvious odontogenic infection or facial cellulitis. The location where she is complaining of swelling does not show any pathologic erythema or edema. Her tympanic membrane is normal this is not consistent with acute otitis media. Overall patient is very well-appearing this is consistent with a viral upper respiratory infection especially given the fact that her son is in the ER with similar symptoms however given her significant tachycardia we will give IV fluids Tylenol ibuprofen check basic blood work and reassess to see if her vital signs improved. Reassessment 844 patient improved significantly heart rate now in the 60s labs unremarkable aside from volume contraction consistent with acute dehydration. No significant electrolyte abnormalities. She is tolerating p.o. Supportive care discussed swabs still pending however she has been told that she can call and follow-up on those results as needed. 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 Critical Care Critical Care Time Critical Care Time: No
[2023-04-05] MEDS: LACTATED RINGERS 1000ML 1,000 ML 999 ML IV (07:54)
[2023-04-05] MEDS: IBUPROFEN 600 MG TABLET PO (07:54)
[2023-04-05] MEDS: ACETAMINOPHEN 500MG TAB 1000 MG PO (07:54)
[2023-04-05 08:10] LABS: Coronavirus 19, PCR Not Detected (NotDetected); Influenza A, PCR Not Detected (NotDetected); Influenza B, PCR Not Detected (NotDetected)
[2023-04-05 08:17] LABS: Chloride 108 mmol/L (98-107); Potassium 4.1 mmoL/L (3.5-5.1); Sodium 140 mmol/L (136-145)
[2023-04-05 08:20] LABS: Alanine Aminotransferase 24 U/L (12-78); Albumin Level 4.5 g/dl (3.5-5.0); Albumin/Globulin Ratio 1.4 (1.1-1.8); Alkaline Phosphatase 71 U/L (38-126); Anion Gap 11.1 mEq/L (5-15); Aspartate Amino Transferase 30 U/L (14-36); Bilirubin,Total 0.9 mg/dl (0.2-1.3); Blood Urea Nitrogen 10 mg/dl (7-17); Carbon Dioxide 25 mmol/L (22.0-30.0); Creatinine Clearance Estimated 112 mL/min (50-200); Estimated Glomerular Filt Rate 91 ml/min (>60); GFR (African American) 111 ML/MIN (>60); Globulin 3.2 g/dL (1.3-3.2); Total Protein,Serum 7.7 g/dl (6.3-8.2)
[2023-04-05 08:21] LABS: Calcium 8.8 mg/dl (8.4-10.2); Glucose 108 mg/dl (74-100)
[2023-04-05 08:22] LABS: Basophils # 0.1 K/mm3 (0-0.2); Basophils % 0.6 % (0.1-2.0); Eosinophils # 0.1 K/mm3 (0.0-0.4); Eosinophils % 1.1 % (0.1-12.0); Hematocrit 49.7 % (37.0-47.0); Hemoglobin 16.5 g/dL (12.2-16.2); Lymphocytes # 1.2 K/mm3 (0.7-4.5); Lymphocytes % 11.7 % (10-50); Mean Corpuscular HGB Conc 33.2 g/dL (31.8-35.4); Mean Corpuscular Hemoglobin 32.1 pg (27.0-31.2); Mean Corpuscular Volume 96.8 fl (81-99); Mean Platelet Volume 8.1 fl (7.4-10.4); Monocytes # 0.4 K/mm3 (0.1-1.0); Monocytes % 3.8 % (1.7-9.3); Neutrophils # 8.2 K/mm3 (1.8-7.8); Neutrophils % 82.9 % (37.0-80.0); Platelet Count 221 K/mm3 (142-424); Red Blood Count 5.14 M/mm3 (4.20-5.40); Red Cell Distribution Width 13.8 % (11.5-17.5); White Blood Count 9.9 K/mm3 (4.5-13.0)
[2023-04-05 08:25] VITALS: PULSE 88; O2SAT 98
[2023-04-05 08:37] VITALS: BP 134/81; PULSE 72; RESP 16; O2SAT 99
[2023-04-05 08:52] VITALS: BP 131/80; PULSE 70; RESP 16; TEMP 37.2; O2SAT 99
== END 2023-04-05 08:54 | disposition home or self-care (01) ==
PROVIDERS: Emergency Provider Student in an Organized Health Care Education/Training Program; PCP Nurse Practitioner Family
DX: E86.0 Dehydration (principal); H92.02 Otalgia, left ear; R00.0 Tachycardia, unspecified; J06.9 Acute upper respiratory infection, unspecified; R09.81 Nasal congestion
CPT/HCPCS: 80053; 85025; 87636; 96360; 99284

== ENCOUNTER 2023-05-01 11:34 | Emergency (ER) | payer OTHER, SELFPAY ==
--- NOTE | 2023-05-01 12:07 | EXP.UTC ---
Discharge Plan Disposition Patient Disposition: Home, Self-Care Condition: Good Prescriptions Prescriptions: New legfwnllyqkrzae-alnepmnaj-OV [Bromfed DM] 2-30-10 mg/5 mL Syrup 5 ml PO Q6H PRN (Reason: Cough) Qty: 240 0RF ondansetron 4 mg Tablet,Disintegrating 4 mg PO Q8H PRN (Reason: Nausea) Qty: 12 0RF No Action norethindrone-e.estradiol-iron [04/14 ()] 1 mg-20 mcg (21)/75 mg (7) tablet 1 tab PO DAILY Qty: 84 3RF Rx Instructions: Take 1 tablet by mouth, at the same time every day. labetalol 100 mg Tablet 100 mg PO BID Qty: 60 0RF Referrals Follow up/Referrals: Ольга Herrera APRN [Primary Care Provider] - See instructions Activity Restrictions/Add. Instructions Additional Instructions/Restrictions: Drink plenty of fluids. Take tylenol or ibuprofen for pain or fever. Take the medications as directed. Follow up with your regular doctor. GO TO THE ER FOR ANY WORSENING SYMPTOMS Clinical Impressions Clinical Impression: Acute viral syndrome Stand Alone Forms Stand Alone Forms: Work/School Release Instructions Patient Instructions: DI for Viral Syndrome Discharge ED Provider: Chaz Lei [facility] [place] General Stated complaint: cough Time Seen by Provider: 05/01/23 12:07 History of Present Illness Provider Complaint: She states that for the past 3 days she has had n/v and malaise. She is starting to feel better today. Related Data Previous Rx's Medication Instructions Recorded labetalol 100 mg tablet 100 mg PO BID #60 tabs 04/26/22 norethindrone 1 mg-ethinyl 1 tab PO DAILY #84 tabs 06/05/22 estradiol 20 mcg (21)-iron 75 mg (7) tablet (04/14 ()) whzxvbubyxrtwzn-fdsywmjnlducztq-IF 5 ml PO Q6H PRN Cough #240 mL 05/01/23 2 mg-30 mg-10 mg/5 mL oral syrup (Bromfed DM) ondansetron 4 mg disintegrating 4 mg PO Q8H PRN Nausea #12 tabs 05/01/23 tablet Allergies Allergy/AdvReac Type Severity Reaction Status Date / Time No Known Allergies Allergy Verified 05/01/23 12:35 [facility] Disclaimer: The information contained in this section may have been updated after the patient was seen, as this information can be updated by other users. Medical History (Updated 05/01/23 @ 12:35 by Chaz Lei APRN) Acute blood loss anemia Delivered by section Lrkm-Jiaj-Slvekw syndrome Pelvic inflammatory disease Sinusitis Surgical History (Updated 06/05/22 @ 15:33 by SONIA Carlos) Status post section Family History Other Cancer Diabetes Hypertension Social History Smoking Status: Never smoker alcohol intake: never substance use type: denies use current occupational status: employed Travel in the last 8 weeks: None household members: significant other housing: apartment caffeine: No ROS Obtained: Yes All systems reviewed & no additional complaints except as documented Constitutional Constitutional: Denies chills, Denies fever(s) and Reports poor appetite ENT Ears, Nose, Mouth, and Throat: Denies dizziness and Denies sore throat Cardiovascular Cardiovascular: Denies dyspnea Respiratory Respiratory: Denies chest congestion, Denies cough and Denies dyspnea Gastrointestinal Gastrointestingal: Reports as per HPI, diarrhea, nausea and vomiting; Denies abdominal pain Genitourinary Female Genitourinary: Denies difficulty voiding, Denies dysuria, Denies hematuria, Denies urinary frequency, Denies urinary incontinence, Denies urinary hesitancy and Denies urinary urgency Musculoskeletal Musculoskeletal: Denies arthralgias Integumentary/Breasts Skin/Breast: Denies rash Neurologic Neurologic: Denies dizziness Physical Exam General General appearance: alert and in no apparent distress Head Head exam: atraumatic and normocephalic Eye Eye exam: Present normal appearance, PERRL and EOMI ENT ENT exam: Present normal exam, normal oropharynx, mucous membranes moist, TM's normal bilaterally and normal external ear exam Neck Neck exam: Present normal inspection, full ROM and trachea midline; Absent tenderness, meningismus or lymphadenopathy Chest Chest inspection: Present normal inspection and symmetric chest wall rise; Absent tenderness, rash or abscess Respiratory Respiratory exam: Present normal lung sounds bilaterally; Absent respiratory distress, wheezes or stridor Cardiovascular Cardiovascular exam: Present regular rate and normal rhythm; Absent irregular rhythm, systolic murmur, diastolic murmur or JVD Abdominal Exam Abdominal exam: Present soft and hyperactive bowel sounds; Absent distention, tenderness, guarding, rebound, rigidity, psoas sign, obturator sign, heel tap sign, Chandler's sign, Rovsing's sign or tenderness at McBurney's Point Extremities Exam Extremities exam: Present normal inspection and full ROM; Absent tenderness Back Exam Back exam: Present normal inspection and full ROM; Absent tenderness, CVA tenderness (R) or CVA tenderness (L) Neurological Exam Neurological exam: Present alert, oriented X3 and CN II-XII intact Psychiatric Psychiatric exam: Present normal affect and normal mood Skin Skin exam: Present warm, dry, intact and normal color Lymphatic Lymphatic Findings: no adenopathy Medical Decision Making Medical Records Medical records reviewed: No I reviewed the patient's medical records. Damien Inquiry Pt receiving controlled substance: No Lab Data Lab results reviewed: Yes I reviewed the patient's lab results.
[2023-05-01 12:10] VITALS: BP 145/83; PULSE 128; RESP 18; TEMP 36.8; O2SAT 98; BMI 19.9
[2023-05-01 12:43] LABS: UTC Influenza A Antigen Negative (Negative); UTC Influenza B Antigen Negative (Negative)
[2023-05-01 12:55] VITALS: BP 145/83; PULSE 128; RESP 18; TEMP 36.8; O2SAT 98
== END 2023-05-01 12:55 | disposition home or self-care (01) ==
PROVIDERS: Emergency Provider Nurse Practitioner Family; PCP Nurse Practitioner Family
DX: R05.9 Cough, unspecified (principal); R11.2 Nausea with vomiting, unspecified; R53.81 Other malaise; B34.9 Viral infection, unspecified
CPT/HCPCS: 87804; 99212; 99214; G0463